=== PATIENT | female | born 1945 | race Caucasian/White ===

== ENCOUNTER 2017-01-11 06:05 | Day surgery (SDC) | payer MEDICARE ==
[~2017-01-11] VITALS: Ht 154.9 cm; Wt 61.4 kg
[2017-01-11] VITALS (8 sets, daily range): BP systolic 108–174; BP diastolic 56–85; PULSE 63–84; RESP 16–19; TEMP 97.8; O2SAT 93–97
[~2017-01-11 06:05] MED LIST: ALIG4CAP PO; ALPR.25 PO; ASPI81 PO; BENEPOW5 PO; BENI20TA26 PO; BIOT2500 PO; DEME50TA PO; DIPH1TAB36 PO; IMODTAB PO; LACT3000 PO; NAPR220T95 PO; PRENCAP10 PO; TAB-TAB PO; VITA-13 PO; XANA0.5T PO; XARE10TA PO
[2017-01-11] MEDS ORDERED: ALPR.25 PO ×2 (06:40→06:43)
[2017-01-11] MEDS ORDERED: XANA0.5T2 PO (06:40)
[2017-01-11] MEDS ORDERED: BENI20TA5 PO (06:44)
[2017-01-11] MEDS ORDERED: LOSA50TA PO (06:45)
[2017-01-11] MEDS ORDERED: SODIUM CHLOR 0.9% 1000 ML INJ 1,000 ML IV SCH (07:00)
[2017-01-11] MEDS ORDERED: SODITAB PO (07:09)
[2017-01-11] MEDS ORDERED: CHOL4POW3 PO (07:10)
[2017-01-11] MEDS ORDERED: LOPE-1 PO (07:11)
[2017-01-11] MEDS ORDERED: ALIG4CAP PO (07:12)
[2017-01-11] MEDS ORDERED: BIOTCAP PO (07:13)
[2017-01-11] MEDS ORDERED: ASPI81CH37 CHEW (07:13)
[2017-01-11] MEDS ORDERED: FOLI400T PO (07:15)
[2017-01-11] MEDS ORDERED: VITA100064 PO (07:16)
[2017-01-11] MEDS ORDERED: FERR325C PO (07:17)
[2017-01-11] MEDS ORDERED: ONCETAB7 PO (07:19)
[2017-01-11] MEDS ORDERED: ALEV220T14 PO (07:21)
[2017-01-11] MEDS ORDERED: LIDOCAINE HCL 1% 20 ML VIAL ONE (07:32)
[2017-01-11] MEDS ORDERED: MIDAZOLAM HCL 2 MG/2 ML VIAL ONE (07:38)
--- NOTE | 2017-01-11 09:49 | PD.RAD ---
Post CT Procedure Prog Note Pre Procedure Diagnosis: (1) Liver function abnormality Post Procedure Diagnosis: (1) Liver function abnormality Procedure Date: Jan 11, 2017 Supervising Radiologist: Kee Street Anesthesia: Conscious Sedation Plan of Activity Patient to Unit: ROPU Patient Condition: Good See PACS Report for procedural detail/treatment Biopsy Imaging Guidance: CT Biopsy Procedure: Liver Specimen: Core Biopsy Kee Street MD Jan 11, 2017 09:49
--- NOTE | 2017-01-11 10:22 | RADRPT ---
EXAM DATE/TIME: 01/11/2017 08:25 [place] COMPARISON: No previous studies available for comparison. INDICATIONS : Elevated antinuclear antibody SEDATION TIME: 15 minutes BIOPSY SITE: liver MEDICATION(S): 1.) 2 mg midazolam (Versed) IV 2.) 100 mcg fentanyl (Sublimaze) IV DEVICE(S): 1.) 18 gauge BioPince needle MEDICAL HISTORY : None. SURGICAL HISTORY : None. ENCOUNTER: Initial ACUITY: 1 day PAIN SCORE: 0/10 LOCATION: Right upper quadrant A total of one core specimen(s) were obtained and sent to the laboratory for pathologic evaluation. PROCEDURE: 1. CT guided liver biopsy. Prior to the procedure informed consent was obtained. Any appropriate prior imaging studies were rev iewed. Using automated exposure control and adjustment of the mA and/or kV according to patient size, radiat ion dose was kept as low as reasonably achievable to obtain optimal diagnostic quality images. DICOM format image data is available electronically for review and comparison. The site was prepped in a sterile fashion. Full sterile technique was used, including cap, mask, sparkle rile gloves and gown and a large sterile sheet. Hand hygiene and 2% chlorhexidine and/or betadine/al cohol prep was utilized per protocol for cutaneous antisepsis. The skin and subcutaneous tissues wer e infiltrated with local anesthetic solution. With CT guidance the previously identified target was localized. Biopsy was performed using the presc ribed needle as above. Adequate hemostasis was obtained with compression at the puncture site. Follow-up CT scan reveals no hemorrhage. The patient tolerated the procedure well and there were no complications. The patient was returned to the Radiology Outpatient Unit in stable condition. CONCLUSION: Uncomplicated CT guided biopsy. Kee Street MD on January 11, 2017 at 10:20 Board Certified Radiologist. This report was verified electronically.
== END 2017-01-11 12:45 | disposition home or self-care (01) ==
LOC: HRAD 06:05 → HRIP 06:06 → HRAD 12:45
PROVIDERS: ATTEND Internal Medicine Gastroenterology
DX: K73.9 Chronic hepatitis, unspecified (principal); R76.8 Other specified abnormal immunological findings in serum
CPT/HCPCS: 47000; 77012; 88307; 88313; J2250; J3010; J7030